=== PATIENT | female | born 1965 | race Two or more races ===

== ENCOUNTER → 2016-11-22 | Outpatient (CLI) | payer MEDICARE, BC | END | disposition home or self-care (01) | LOC: RAD.S 12:32 | DX: Z12.31 Encounter for screening mammogram for malignant neoplasm of breast (principal); N63 Unspecified lump in breast ==

== ENCOUNTER → 2016-11-28 | Outpatient (CLI) | payer MEDICARE, BC | END | disposition home or self-care (01) | LOC: RAD.S 12:42 | DX: N63 Unspecified lump in breast (principal); N60.02 Solitary cyst of left breast ==